=== PATIENT | male | born 1970 | race Caucasian/White ===

== ENCOUNTER → 2017-12-13 | Day surgery (SDC) | payer OTHER ==
[2017-11-15 11:26] VITALS: Ht 175.3 cm; Wt 140.9 kg
--- NOTE | 2017-11-21 10:07 | PAT Medication Instructions ---
Service Date Nov 21, 2017. Current Home Medication List Amlodipine Besylate (Norvasc), 10 MG PO QAM Doxazosin Mesylate (Cardura), 4 MG PO QAM Duloxetine HCl (Cymbalta), 30 MG PO HS Furosemide (Lasix), 40 MG PO BID Hydrochlorothiazide (Hydrochlorothiazide), 25 MG PO QAM Levetiracetam (Roweepra), 750 MG PO BID Losartan Potassium (Cozaar), 100 MG PO QAM Oxycodone Hcl (Oxycodone Hcl), 10 MG PO QID PRN for Pain Medication Instructions For Your Scheduled Surgery - Hold the following medications the morning of surgery: Furosemide (Lasix), 40 MG PO BID Hydrochlorothiazide (Hydrochlorothiazide), 25 MG PO QAM Losartan Potassium (Cozaar), 100 MG PO QAM - Take the following medications the morning of surgery with a sip of water: Amlodipine Besylate (Norvasc), 10 MG PO QAM Doxazosin Mesylate (Cardura), 4 MG PO QAM Levetiracetam (Roweepra), 750 MG PO BID Oxycodone Hcl (Oxycodone Hcl), 10 MG PO QID PRN for Pain (if needed, can be taken up to four hours before surgery - Take the following medications as scheduled the night before surgery: Duloxetine HCl (Cymbalta), 30 MG PO HS Furosemide (Lasix), 40 MG PO BID Levetiracetam (Roweepra), 750 MG PO BID Oxycodone Hcl (Oxycodone Hcl), 10 MG PO QID PRN for Pain (If needed) If you have any questions please call us at [phone] or [phone] or [phone]
[2017-11-21 11:05] LABS: HEMATOCRIT 42.2 % (42-52); HEMOGLOBIN 14.5 g/dL (14.0-18.0); MEAN CELL VOLUME 86.5 fL (80-100); MEAN CORPUSCULAR HEMOGLOBIN 29.7 pg (25-34); MEAN CORPUSCULAR HGB CONC 34.4 g/dl (32-36); MEAN PLATELET VOLUME 9.1 fL (7.4-10.4); PLATELET COUNT 266 K/uL (130-400); RED CELL DISTRIBUTION WIDTH CV 13.4 % (11.5-14.5); RED CELL DISTRIBUTION WIDTH SD 42.4 fL (36.4-46.3); WHITE BLOOD COUNT 7.33 K/uL (4.8-10.8)
[2017-11-21 11:14] LABS: ALBUMIN 3.4 gm/dl (3.4-5.0); CALCIUM 8.9 mg/dl (8.5-10.1); CREATININE 0.93 mg/dl (0.60-1.40); POTASSIUM 3.4 mmol/L (3.5-5.1)
[2017-11-21 11:17] LABS: TOTAL PROTEIN 7.1 gm/dl (6.4-8.2)
[~2017-12-13] VITALS: Ht 175.3 cm; Wt 140.9 kg
[~2017-12-13] MED LIST: AMLO10TA2 PO; CYM/30 PO; DOXA4TAB2 PO; FRS/40 PO; HYDR25TA5 PO; LOSA1TAB38 PO; OXYC-164 PO; [UNRECOGNIZED DRUG - CODE] PO
== END | disposition home or self-care (01) ==
LOC: EDSTATUS 07:30 → C.PAT 16:12
PROVIDERS: ATTEND Orthopaedic Surgery Sports Medicine
DX: S83.206A Unspecified tear of unspecified meniscus, current injury, right knee, initial encounter (principal); Z53.9 Procedure and treatment not carried out, unspecified reason; X58.XXXA Exposure to other specified factors, initial encounter